=== PATIENT | female | born 1950 | race Caucasian/White ===

== ENCOUNTER 2024-02-05 11:28 | Day surgery (SDC) | payer OTHER, SELFPAY ==
[2024-01-28 14:39] VITALS: BMI 36.3
[2024-02-05] VITALS (8 sets, daily range): BP systolic 113–161; BP diastolic 44–69; PULSE 63–82; RESP 9–15; TEMP 36.4–36.9; O2SAT 94–98; BMI 36.3
--- NOTE | 2024-02-05 | DI.RAD.S_ITS ---
PROCEDURE: XR LUMBAR SPINE 2-3V INDICATIONS: L4-L5 microdiscetion TECHNIQUE: A total of 2 views of the lumbar spine were acquired intraoperatively. COMPARISON: 10/07/23 LS spine MRI. FINDINGS: Bones: 2 intraoperative images, frontal and lateral, show access port for micro discectomy centered at the left posterolateral area of the L4-L5 posterolateral elements. IMPRESSION: Expected alignment for L4-L5 micro discectomy, intraoperative evaluation. Dictated by: Bertin Bright M.D. on 02/05/2024 at 16:42 Approved by: Bertin Bright M.D. on 02/05/2024 at 16:44
[2024-02-05] MEDS: LACTATED RINGERS 1,000 ML 42 ML IV ×2 (12:24→12:47)
[2024-02-05] MEDS: ACETAMINOPHEN 325 MG TABLET 975 MG PO (12:47)
--- NOTE | 2024-02-05 13:08 | PM.PREOP ---
Pre-operative Note Interval Note History & Physical reviewed/Exam performed by Physician: Yes Changes to H&P: No
[2024-02-05] MEDS: CEFAZOLIN 2 GM/100 ML PREMIX 100 ML IV (13:50)
--- NOTE | 2024-02-05 14:06 | SUR.OPER ---
Prone on spine table, head in foam head support, padded chest and pelvic supports, gel pad at knees, lower legs supported by pillows; nipples, genitalia and toes free of pressure, arms secured on foam padded arm boards at <90 degrees abduction. Tape over blanket at thigh secured to table.
[2024-02-05] MEDS: BUPIVACAINE 0.25% W/ EPI (PF) 10 ML VIAL 30 ML INJ (14:11)
--- NOTE | 2024-02-05 14:51 | P.OP_ITS ---
Operative Date/Time/Diagnoses Date of procedure: 02/05/24 Time of procedure: 14:00 Pre-op diagnosis: 1. L4-5 far lateral disc herniation 2. L4-5 left foramen stenosis Post-op diagnosis: same Procedure & Clinicians Procedure: 1. L4-5 left far lateral microdiscectomy through extraforamen approach 2. Utilization of microsurgical technique and operating microscope Same procedure as scheduled: Yes Indications: Patient has been having chronic back pain and worsening lumbar radiculopathy. Patient was found to have L4-5 far lateral disc herniation with migration causing severe foraminal stenosis and left L4 nerve root impingement correlating with her symptoms. Patient failed multiple conservative management with worsening pain weakness and numbness in her lower extremity. Patient has been having difficulty performing activity of daily living. After discussing risks benefits of treatment options, patient elected proceed with surgery. Surgeon: Edy Perkins Forensic Technician: Latonya Pérez Click Yes if Unassisted: No Anesthesia Type: General Operative Notes Closure Type: primary Specimen(s): none sent Estimated Blood Loss (mL): 5 Blood products transfused: none Procedure in detail: Patient was seen in the preoperative area. Risks and benefits of the surgery was discussed with the patient. Informed consent was obtained from the patient and placed in the chart. Surgical site was marked. Patient was taken to the operative room. General anesthesia was administered. Prophylactic antibiotic was given to the patient less than 30 min before the incision was made. Patient was placed into a prone position on the Ryan table. Patient's back was then prepped and draped in the sterile fashion. Time-out was performed at this time. Using AP and lateral C-arm imaging the interval between L4-5 was identified and marked on patient's back. A 1 inch incision 1 in from midline was made on the left side in line with the transverse processes. The fascia was incised in line with skin incision. Globus MARS retractors was placed inside the incision and docked onto the transverse process at the L4 level. The retractor was then re- targeted towards L4-5 neuroforamen from extraforamen approach under c-arm guidance. Using microsurgical technique and operating microscope, a the disc space at L4-5 was identified. Microdiscectomy was performed by incising the annulus with #11 blade. Microcurettes and pituitary was used to removed herniated disc fragments of disc from the neuroforamen. After the microdiskectomy was completed, the area medial lateral superior and inferior to the area of the microdiskectomy was inspected and explored using a micro curette. No other impinging structure was identified. The wound was then irrigated with sterile normal saline. 40 mg Depo-Medrol was placed into the epidural space. The deep fascia was closed with 1-0 Vicryl. The subcutaneous tissue was closed with 2-0 Vicryl. The skin was closed with skin cami. Patient tolerated the procedure well. There were no complications. Patient was transferred recovery room in stable condition. The Operation could not have been safely performed without compromising the technical result or length of the procedure, without the assistance of a skilled surgical technology instructor. The surgical technology instructor was medically necessary for proper positioning, retraction and manipulation of instruments, proper exposure, surgical preparation, and manipulation of tissue. Complications: none Post-operative Condition: stable Disposition: PACU Plan for aftercare: Discharge to home
[2024-02-05] MEDS: MEPERIDINE 50 MG/ML INJ 12.5 MG IV (15:29)
[2024-02-05] MEDS: ONDANSETRON 4 MG/2 ML INJ IV (15:32)
== END 2024-02-05 16:33 | disposition home or self-care (01) ==
PROVIDERS: PCP Nurse Practitioner; Referring Provider Orthopaedic Surgery Orthopaedic Surgery of the Spine; Visit Provider Orthopaedic Surgery Orthopaedic Surgery of the Spine
PROC: (CPT 63056; principal; 2024-02-05 13:15)
DX: M51.26 Other intervertebral disc displacement, lumbar region (principal); M48.061 Spinal stenosis, lumbar region without neurogenic claudication; M54.16 Radiculopathy, lumbar region
CPT/HCPCS: 63056; 72100; 76000; J0690; J1100; J1885; J2175; J2405; J2704; J2919; J3010